=== PATIENT | female | born 1935 | race Caucasian/White ===

== ENCOUNTER 2016-06-25 12:14 | Inpatient (IN) | payer MEDICARE, BC ==
[~2016-06-25] VITALS: Ht 165.1 cm; Wt 68.0 kg
[~2016-06-25 12:14] MED LIST: ALPR0.25 PO; ALPR0.5T8 PO; ASPI81TA2 PO; DESM0.2T23 PO; ESCI10TA PO; ESOM40CA PO; LEVO750T21 PO; PRAV80TA21 PO; TAMS0.4C34 PO
[2016-06-25] MEDS ORDERED: IV NS 0.9% 1,000 ML ONE ×2 (12:54→14:03)
[2016-06-25] MEDS ORDERED: IV SET PRIMARY 1 EA INFUS.SET MC ONE (12:54)
[2016-06-25] MEDS ORDERED: MORPHINE SULFATE INJ 2 MG/ML DISP.SYRIN IV ONE (13:00)
[2016-06-25] MEDS ORDERED: IV NS 0.9% 1,000 ML BAG IV ONE (13:00)
[2016-06-25] MEDS ORDERED: ONDANSETRON HCL/PF - ER 4 MG/2 ML VIAL IV ONE (13:00)
[2016-06-25] MEDS ORDERED: MORPHINE SULFATE INJ 2 MG/ML DISP.SYRIN ONE (13:06)
[2016-06-25] MEDS ORDERED: ONDANSETRON HCL/PF 4 MG/2 ML VIAL ONE (13:06)
[2016-06-25 13:10] LABS: BASOPHILS % (AUTO) 0.2 % (0.0-2.0); DIFF TOTAL % 100 %; EOSINOPHILS # (AUTO) 0.1 /CMM (0.0-0.7); HEMATOCRIT 37 % (33-45); HEMOGLOBIN 12.4 g/dL (11.5-14.8); LYMPHOCYTES % (AUTO) 20.7 % (20.0-44.0); MEAN CORPUSCULAR HEMOGLOBIN 31 PG (26.0-33.0); MEAN CORPUSCULAR HGB CONC 34 g/dl (31.0-36.0); MEAN CORPUSCULAR VOLUME 93 fL (82-100); MONOCYTES # (AUTO) 0.3 /CMM (0.1-1.30); MONOCYTES % (AUTO) 5.7 % (2.0-12.0); NEUTROPHILS # (AUTO) 3.7 /CMM (1.8-8.9); NEUTROPHILS % (AUTO) 72.4 % (43.0-81.0); PLATELET COUNT (AUTO) 193 /CMM (150-450); RED BLOOD CELL COUNT(AUTO) 3.99 MIL/uL (4.0-5.2); WHITE BLOOD COUNT (AUTO) 5.1 K/uL (4.3-11.0)
[2016-06-25 13:19] LABS: ANION GAP 14 (5-14); CALCIUM, SERUM 9.4 mg/dL (8.5-10.1); CARBON DIOXIDE 26 mmol/L (21-32); CHLORIDE 98 mmol/L (98-107); CREATININE 1.4 mg/dL (0.6-1.3); GLUCOSE 131 mg/dL (74-106); POTASSIUM 4.2 mmol/L (3.5-5.1); SODIUM SERUM 134 mmol/L (136-145); UREA NITROGEN, BLOOD 29 mg/dL (7-18)
[2016-06-25 13:23] LABS: LACTIC ACID 0.9 mmol/L (0.4-2.0)
[2016-06-25 13:24] LABS: ALANINE AMINOTRANSFERASE 19 U/L (12-78); ALBUMIN 3.5 g/dL (3.4-5.0); ASPARTATE AMINOTRANSFERASE 39 U/L (15-37); BILIRUBIN,DIRECT 0.1 mg/dL (0.0-0.2); BILIRUBIN,TOTAL 0.5 mg/dL (0.2-1.0); INDIRECT BILIRUBIN 0.4 mg/dL (0.0-1.1); TOTAL PROTEIN, SERUM 7.5 g/dL (6.4-8.2)
[2016-06-25 13:26] LABS: TROPONIN I < 0.017 ng/mL (0.00-0.056)
[2016-06-25 13:33] LABS: INR 0.95 (0.87-1.13)
[2016-06-25] MEDS ORDERED: IV NS 0.9% 1,000 ML IV ONE (14:00)
[2016-06-25 15:09] LABS: KETONES,URINE Trace (NEGATIVE); LEUKOCYTE ESTERASE ,URINE Negative (NEGATIVE)
[2016-06-25 15:13] LABS: ADD UA MICROSCOPIC YES
[2016-06-25 15:21] LABS: ADD URINE CULTURE NO; RBC,URINE 0-2 /HPF (0-2); WBC,URINE 0-2 /HPF (0-3)
[2016-06-25] MEDS ORDERED: IV 1/2NS 1000 ML 1,000 ML IV PRN (17:02)
[2016-06-25] MEDS ORDERED: ONDANSETRON HCL/PF 4 MG/2 ML VIAL IVP PRN (17:30)
[2016-06-25] MEDS ORDERED: Z GUARD REMEDY 2 OZ OINT TP PRN (17:30)
[2016-06-25] MEDS ORDERED: MAGNESIUM HYDROXIDE 30 ML UDC PO PRN (17:30)
[2016-06-25] MEDS ORDERED: ENOXAPARIN SODIUM 40 MG/0.4 ML DISP.SYRIN SQ SCH (17:30)
[2016-06-25] MEDS ORDERED: ACETAMINOPHEN 325 MG TABLET PO PRN (17:30)
[2016-06-25] MEDS ORDERED: ZOLPIDEM TARTRATE 5 MG TABLET PO PRN (17:30)
[2016-06-25] MEDS ORDERED: HYDROCODONE/APAP 5/325MG 1 EACH TABLET PO PRN (17:30)
[2016-06-25] MEDS ORDERED: HYDROCODONE/APAP 10/325MG 1 EA TABLET PO PRN (17:30)
[2016-06-25] MEDS ORDERED: MAG HYDROX/AL HYDROX/SIMETH 30 ML UDC PO PRN (17:30)
[2016-06-25 20:00] VITALS: BP 145/74
[2016-06-25] MEDS: ENOXAPARIN SODIUM 30 MG/0.3 ML DISP.SYRIN SQ SCH ×2 (21:00→21:45)
[2016-06-25] MEDS: ALPRAZOLAM 0.5 MG TABLET PO SCH (21:44)
[2016-06-25] MEDS: ATORVASTATIN 10 MG TABLET PO SCH ×2 (21:44→22:00)
[2016-06-25] MEDS: TAMSULOSIN 0.4 MG CAP.SR.24H PO SCH ×2 (21:44→22:00)
[2016-06-25] MEDS ORDERED: IV SET PRIMARY PUMP SET 1 EA INFUS.SET MC ONE (21:45)
[2016-06-25] MEDS: DESMOPRESSIN ACETATE 0.1 MG TABLET PO SCH ×2 (21:45→22:00)
[2016-06-25] MEDS ORDERED: PRAVASTATIN SODIUM 20 MG TABLET PO SCH (22:00)
[2016-06-26] VITALS: BP 133/69
[2016-06-26 04:00] VITALS: BP 135/72
[2016-06-26 07:14] VITALS: BP 142/80
[2016-06-26] MEDS ORDERED: PANTOPRAZOLE 40 MG TABLET.DR PO SCH (07:30)
[2016-06-26 07:56] LABS: BASOPHILS % (AUTO) 0.4 % (0.0-2.0); DIFF TOTAL % 100 %; EOSINOPHILS # (AUTO) 0.1 /CMM (0.0-0.7); EOSINOPHILS % (AUTO) 2.3 % (0.0-6.0); HEMATOCRIT 34 % (33-45); HEMOGLOBIN 11.2 g/dL (11.5-14.8); LYMPHOCYTES # (AUTO) 1.3 /CMM (0.8-4.8); LYMPHOCYTES % (AUTO) 23.7 % (20.0-44.0); MEAN CORPUSCULAR HEMOGLOBIN 31 PG (26.0-33.0); MEAN CORPUSCULAR HGB CONC 33 g/dl (31.0-36.0); MEAN CORPUSCULAR VOLUME 94 fL (82-100); MONOCYTES # (AUTO) 0.4 /CMM (0.1-1.30); MONOCYTES % (AUTO) 6.9 % (2.0-12.0); NEUTROPHILS # (AUTO) 3.8 /CMM (1.8-8.9); NEUTROPHILS % (AUTO) 66.7 % (43.0-81.0); PLATELET COUNT (AUTO) 174 /CMM (150-450); RED BLOOD CELL COUNT(AUTO) 3.57 MIL/uL (4.0-5.2); WHITE BLOOD COUNT (AUTO) 5.7 K/uL (4.3-11.0)
[2016-06-26 08:09] LABS: CALCIUM, SERUM 8.3 mg/dL (8.5-10.1); CREATININE 1.5 mg/dL (0.6-1.3); PHOSPHORUS 3.6 mg/dL (2.5-4.9); POTASSIUM 3.9 mmol/L (3.5-5.1)
[2016-06-26 08:11] LABS: THYROID STIMULATING HORMONE 4.723 uIU/mL (0.358-3.74)
[2016-06-26] MEDS: ALPRAZOLAM 0.5 MG TABLET PO SCH ×3 (08:21→16:11)
[2016-06-26] MEDS ORDERED: ESCITALOPRAM OXALATE (10 MG) 10 MG TABLET PO SCH (09:00)
[2016-06-26] MEDS ORDERED: ASPIRIN 81 MG TAB.CHEW PO SCH (09:00)
[2016-06-26] MEDS ORDERED: MAGNESIUM OXIDE 400 MG TABLET PO ONE (12:00)
[2016-06-26 16:00] VITALS: BP 128/71
[2016-06-26] MEDS ORDERED: ALPRAZOLAM 0.5 MG TABLET PO PRN (17:00)
== END 2016-06-26 16:55 | disposition home or self-care (01) | DRG 682 ==
LOC: ER 12:15 → MED 20:06 → TELE 23:33 → MED 06-26 09:15
DX: N17.0 Acute kidney failure with tubular necrosis (principal); G93.40 Encephalopathy, unspecified; C79.51 Secondary malignant neoplasm of bone; E87.1 Hypo-osmolality and hyponatremia; G44.40 Drug-induced headache, not elsewhere classified, not intractable; B02.9 Zoster without complications; E86.0 Dehydration; C50.911 Malignant neoplasm of unspecified site of right female breast; E03.9 Hypothyroidism, unspecified; D64.9 Anemia, unspecified; E78.5 Hyperlipidemia, unspecified; E83.42 Hypomagnesemia; H26.9 Unspecified cataract; N18.3 Chronic kidney disease, stage 3 (moderate); T37.5X5A Adverse effect of antiviral drugs, initial encounter; Y92.009 Unspecified place in unspecified non-institutional (private) residence as the place of occurrence of the external cause; R11.10 Vomiting, unspecified; I12.9 Hypertensive chronic kidney disease with stage 1 through stage 4 chronic kidney disease, or unspecified chronic kidney disease; N39.41 Urge incontinence; E11.22 Type 2 diabetes mellitus with diabetic chronic kidney disease; E86.9 Volume depletion, unspecified
CPT/HCPCS: 36415; 70450-TC; 71010-TC; 80048-TC; 80061-TC; 80076-TC; 81000-TC; 83605-TC; 83690-TC; 83735-TC; 84100-TC; 84443-TC; 84484-TC; 85025-TC; 85730-TC; 87040-TC; 87081-TC; 87086-TC; 92521; 97001-TC; A4606; J1650; J2270; J2405; J3490; J7030; Z7610